=== PATIENT | male | born 1970 | race Caucasian/White ===

== ENCOUNTER 2017-01-04 20:28 | Emergency (ER) | payer BC, OTHER ==
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
[2017-01-04] MEDS ORDERED: Sodium Chloride 0.9% 500 ML IV SCH (21:00)
[2017-01-04] MEDS ORDERED: HYDROmorphone 1 MG/ML Syringe IV ONE (22:06)
[2017-01-04] MEDS ORDERED: Ondansetron 4 MG/2 ML SDV IVPUSH ONE (22:17)
[2017-01-04 23:12] LABS: CHLORIDE,CL 110 mmol/L (98-110); SODIUM,NA 139 mmol/L (136-146)
[2017-01-04] MEDS ORDERED: HYDROmorphone 2 MG/ML Syringe IVPUSH ONE (23:14)
[2017-01-04] MEDS ORDERED: Iopamidol 755 Mg/ML 100 ML Bottle IVPUSH STA (23:52)
[2017-01-05] MEDS ORDERED: Sodium Chloride 0.9% 1,000 ML IV ONE (00:27)
[2017-01-05] MEDS ORDERED: HYDROmorphone 1 MG/ML Syringe IVPUSH ONE (01:43)
[2017-01-05 02:58] VITALS: BP 129/77
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
== END 2017-01-05 02:52 ==
LOC: MW.ED 20:28
DX: S22.42XA Multiple fractures of ribs, left side, initial encounter for closed fracture (principal); S32.10XA Unspecified fracture of sacrum, initial encounter for closed fracture; S32.008A Other fracture of unspecified lumbar vertebra, initial encounter for closed fracture; V29.88XA Motorcycle rider (driver) (passenger) injured in other specified transport accidents, initial encounter; Y92.410 Unspecified street and highway as the place of occurrence of the external cause; S27.321A Contusion of lung, unilateral, initial encounter; Z79.899 Other long term (current) drug therapy; I10 Essential (primary) hypertension; E78.5 Hyperlipidemia, unspecified
CPT/HCPCS: 36415; 71101; 71260; 72100; 73502; 74177; 80053; 83690; 85025; 85610; 93005; 96361; 96374; 96375; 96376; 99285; G0480; J1170; J2405; J7040; Q9967; 72128-26; 72131-26